=== PATIENT | male | born 1950 | race Caucasian/White ===

== ENCOUNTER → 2018-02-23 | Outpatient (CLI) | payer OTHER ==
[~2018-02-23] MED LIST: DIOVAN HCT 160-1 TAB; KEFLEX750 MG PO; KETO10TA2 PO; LIPITOR40 MG; MUPIROCIN22 GM TOP; UROXATRAL10 MG; ZETIA10 MG
== END | disposition home or self-care (01) ==
LOC: RAD 12:20
DX: R06.09 Other forms of dyspnea (principal); R06.02 Shortness of breath

== ENCOUNTER 2018-05-10 10:05 | Outpatient (CLI) | payer OTHER | END 2018-05-10 10:12 | disposition home or self-care (01) | LOC: NUCLEAR 10:05 | DX: M81.0 Age-related osteoporosis without current pathological fracture (principal); E11.69 Type 2 diabetes mellitus with other specified complication ==

== ENCOUNTER 2019-01-13 09:10 | Outpatient (CLI) | payer OTHER ==
[~2019-01-13 09:10] MED LIST changes: +AVAPRO75 MG PO; +CARDURA1 MG
== END 2019-01-13 09:25 | disposition home or self-care (01) ==
LOC: RAD 09:10
DX: R06.02 Shortness of breath (principal); R06.09 Other forms of dyspnea

== ENCOUNTER 2019-01-19 15:18 | Outpatient (CLI) | payer OTHER | END 2019-01-19 15:26 | disposition home or self-care (01) | LOC: TOM 15:18 | DX: J44.9 Chronic obstructive pulmonary disease, unspecified (principal); Z77.22 Contact with and (suspected) exposure to environmental tobacco smoke (acute) (chronic) ==

== ENCOUNTER 2019-06-21 07:55 | Outpatient (CLI) | payer OTHER | END 2019-06-21 09:03 | disposition home or self-care (01) | LOC: SONOGRAMA 07:55 → MAMO-SONO 08:15 → SONOGRAMA 09:03 | DX: R10.84 Generalized abdominal pain (principal); N18.3 Chronic kidney disease, stage 3 (moderate); R31.29 Other microscopic hematuria ==

== ENCOUNTER 2019-09-13 11:06 | Emergency (ER) | payer OTHER ==
[~2019-09-13] VITALS: Ht 172.7 cm; Wt 79.4 kg
[2019-09-13] MEDS ORDERED: AVAPRO300 MG (11:54)
[2019-09-13] MEDS ORDERED: ZYRTEC10 MG (11:55)
== END 2019-09-13 17:18 | disposition home or self-care (01) ==
LOC: ER 11:06
DX: B34.9 Viral infection, unspecified (principal); R50.9 Fever, unspecified

== ENCOUNTER 2020-07-18 12:20 | Outpatient (CLI) | payer OTHER ==
[~2020-07-18 12:20] MED LIST changes: +AVAPRO300 MG; +ZYRTEC10 MG
== END 2020-07-18 16:47 | disposition home or self-care (01) ==
LOC: RAD 12:20
PROVIDERS: ATTEND Internal Medicine Pulmonary Disease
DX: R06.02 Shortness of breath (principal); R06.09 Other forms of dyspnea

== ENCOUNTER 2020-07-19 14:02 | Outpatient (CLI) | payer OTHER | END 2020-07-19 14:13 | disposition home or self-care (01) | LOC: NUCLEAR 14:02 | DX: M81.0 Age-related osteoporosis without current pathological fracture (principal); E11.69 Type 2 diabetes mellitus with other specified complication ==

== ENCOUNTER 2020-08-11 09:03 | Emergency (ER) | payer OTHER ==
[~2020-08-11] VITALS: Ht 172.7 cm; Wt 79.4 kg
== END 2020-08-11 10:09 | disposition home or self-care (01) ==
LOC: ER 09:03
DX: M62.830 Muscle spasm of back (principal)

== ENCOUNTER 2020-12-27 13:51 | Outpatient (CLI) | payer OTHER | END 2020-12-27 14:02 | disposition home or self-care (01) | LOC: RAD 13:51 | PROVIDERS: ATTEND Internal Medicine | DX: J44.1 Chronic obstructive pulmonary disease with (acute) exacerbation (principal) ==

== ENCOUNTER 2021-01-21 07:36 | Outpatient (CLI) | payer OTHER | END 2021-01-21 07:38 | disposition home or self-care (01) | LOC: SONOGRAMA 07:36 → MAMO-SONO 07:45 | PROVIDERS: ATTEND Internal Medicine Nephrology | DX: R31.29 Other microscopic hematuria (principal) ==

== ENCOUNTER 2021-04-10 13:16 | Outpatient (CLI) | payer OTHER | END 2021-04-10 13:24 | disposition home or self-care (01) | LOC: RAD 13:16 | PROVIDERS: ATTEND Internal Medicine Pulmonary Disease | DX: J45.901 Unspecified asthma with (acute) exacerbation (principal); J32.0 Chronic maxillary sinusitis ==

== ENCOUNTER 2021-05-21 13:11 | Outpatient (CLI) | payer OTHER | END 2021-05-21 13:21 | disposition home or self-care (01) | LOC: SONOGRAMA 13:11 | PROVIDERS: ATTEND Internal Medicine Nephrology | DX: E06.3 Autoimmune thyroiditis (principal); E03.8 Other specified hypothyroidism; E04.2 Nontoxic multinodular goiter ==

== ENCOUNTER 2022-07-30 07:46 | Outpatient (CLI) | payer OTHER | END 2022-07-30 07:50 | disposition home or self-care (01) | LOC: SONOGRAMA 07:46 | PROVIDERS: ATTEND Internal Medicine Cardiovascular Disease | DX: E78.2 Mixed hyperlipidemia (principal); I70.0 Atherosclerosis of aorta; I71.40 Abdominal aortic aneurysm, without rupture, unspecified; I11.9 Hypertensive heart disease without heart failure ==

== ENCOUNTER 2024-08-24 11:43 | Emergency (ER) | payer OTHER ==
[~2024-08-24] VITALS: Ht 175.3 cm; Wt 86.2 kg
[~2024-08-24 11:43] MED LIST changes: +LIPITOR20 MG PO; +SYNTHROID75 MCG PO
[2024-08-24 12:21] VITALS: BP 139/87; O2SAT 93
[2024-08-24] MEDS ORDERED: LEVALBUTEROL HCL 0.63 MG/3 ML SOLUTION IH SCH (12:45)
[2024-08-24] MEDS ORDERED: BUDESONIDE 0.5 MG/2 ML AMPUL.NEB IH ONE (12:45)
[2024-08-24] MEDS ORDERED: levoFLOXacin IN DEXTROSE 5 % 500MG/100ML PIGGYBAG IV ONE (12:45)
[2024-08-24 14:20] LABS: HEMATOCRIT 41.9 % (39.0-48.0); HEMOGLOBIN 14.1 g/dL (13-16.00); MEAN CELL VOLUME 96.3 fL (80.0-100.00); MEAN CORPUSCULAR HEMOGLOBIN 32.4 pg (27.00-32.0); MEAN CORPUSCULAR HGB CONC 33.7 g/dl (32.0-36.0); PLATELET COUNT 134 K/uL (150-450); RED BLOOD COUNT 4.35 M/uL (4.00-6.00); RED CELL DISTRIBUTION WIDTH 13.8 % (11.5-14.5)
[2024-08-24 14:46] LABS: ABG PH 7.429 (7.35-7.45); ABG PO2 86.7 mmHg (80-100); ABG pCO2 34.8 mmHg (35-45); BASE EXCESS -1.1 mmol/l; BICARBONATE 22.6 mmol/l (23-25); SaO2 96.8 %; Tco2 23.7 mmol/l; allen test SATISFACTORY; o2 21 %; puncture site RADIAL RIGHT
[2024-08-24 15:30] LABS: CALCIUM 8.7 mg/dL (8.5-10.1); CREATININE SERUM 1.44 mg/dL (0.70-1.30); GFR 47.82
[2024-08-24 15:31] LABS: C-REACTIVE PROTEIN 0.82 MG/DL (0.00-0.29); POTASSIUM 4.81 mEq/L (3.5-5.1)
== END 2024-08-24 19:07 | disposition home or self-care (01) ==
LOC: ER 11:45
PROVIDERS: Emergency Medicine
DX: R53.81 Other malaise (principal); J40 Bronchitis, not specified as acute or chronic; Z20.822 Contact with and (suspected) exposure to COVID-19; I10 Essential (primary) hypertension; E03.8 Other specified hypothyroidism
CPT/HCPCS: 36415; 71046; 82803; 94640; 94760; 96365; 99283; J1956

== ENCOUNTER 2025-03-29 09:01 | Emergency (ER) | payer OTHER ==
[~2025-03-29] VITALS: Ht 172.7 cm; Wt 81.6 kg
[2025-03-29 09:38] VITALS: BP 92/64; O2SAT 97
[2025-03-29] MEDS ORDERED: ALBUTEROL SULFATE 3 ML/2.5 MG AMPUL.NEB IH SCH (10:30)
[2025-03-29] MEDS ORDERED: GUAIFEN/DEXTROMETHORPHAN/PE 10 ML BLIST.PACK PO ONE (10:41)
[2025-03-29] MEDS ORDERED: BROMPHENIRAM/PHENYLEPHRINE/DM 5 ML BLIST.PACK PO ONE (10:45)
[2025-03-29 10:56] LABS: BASO % 0.8 % (0.1-1.2); EOS # 0.15 (0.04-0.54); HEMATOCRIT 40.7 % (40.1-51.0); HEMOGLOBIN 14.2 g/dL (13.7-17.5); LYMPH # 0.82 (1.18-3.74); LYMPH % 10.7 % (19.3-53.1); MEAN CORPUSCULAR HEMOGLOBIN 32.4 pg (25.6-32.2); MONO # 1.07 (0.24-0.82); NEUT # 5.55 (1.56-6.13); NEUT % 72.2 % (34.0-71.1); PLATELET COUNT 179 K/uL (163-369); RED BLOOD COUNT 4.38 M/uL (4.63-6.08); RED CELL DISTRIBUTION WIDTH 13.3 % (11.6-14.4)
[2025-03-29] MEDS ORDERED: ALBUTEROL SULFATE 3 ML/2.5 MG AMPUL.NEB IH ONE (11:04)
[2025-03-29 11:27] LABS: ALBUMIN 3.6 gm/dL (3.4-5.0); BILIRUBIN TOTAL 0.39 mg/dL (0.3-1.2); CALCIUM 9.1 mg/dL (8.5-10.1); CREATININE SERUM 2.2 mg/dL (0.70-1.30); GFR 29.25; GLOBULINA 3.7 G/DL (2.4-3.5); POTASSIUM 5.13 mEq/L (3.5-5.1); TOTAL PROTEIN 7.3 gm/dL (6.4-8.2)
[2025-03-29 11:47] LABS: COVID-19 AG NEGATIVE (NEGATIVE); INFLUENZA A AG NEGATIVE (NEGATIVE); INFLUENZA B AG NEGATIVE (NEGATIVE)
== END 2025-03-29 14:02 | disposition home or self-care (01) ==
LOC: ER 09:01
PROVIDERS: Emergency Medicine
DX: B34.9 Viral infection, unspecified (principal); J45.901 Unspecified asthma with (acute) exacerbation; Z20.822 Contact with and (suspected) exposure to COVID-19; I10 Essential (primary) hypertension